=== PATIENT | female | born 1995 | race African-American/Black ===

== ENCOUNTER 2017-02-15 01:51 | Emergency (ER) | payer OTHER, SELFPAY ==
[2017-02-15 02:27] LABS: Bilirubin Negative (Negative); Blood, Urine Negative (Negative); Glucose, Urine (Dipstick) Negative (Negative); Ketone, Urine Negative (Negative); Nitrite Negative (Negative); Protein, Urine (Dipstick) Negative (Neg-Trace)
[2017-02-15 03:09] LABS: #Lymphocytes 1.7 thou/uL (1.20-3.40); #Monocytes 0.5 thou/uL (0.11-0.59); %Basophils 0.4 % (0.0-1.0); %Eosinophils 0.5 % (0.0-10.0); %Lymphocytes 32.5 % (28.0-48.0); %Monocytes 9.8 % (0.0-4.0); Hematocrit 36.4 % (36.0-47.0); Mean Platelet Volume 7.6 fL (7.4-10.4); Red Blood Cell (RBC) Count 3.77 mill/uL (4.00-5.20); White Blood Cell (WBC) Count 5.3 thou/uL (4.8-10.8)
[2017-02-15 03:32] LABS: ALT (SGPT) 9 U/L (8-55); AST (SGOT) 15 U/L (5-30); Alkaline Phosphatase 57 U/L (40-150); Anion Gap 12 mmol/L (10-20); BUN (Urea Nitrogen) 10 mg/dL (8.4-21.0); Bilirubin, Total 0.5 mg/dL (0.2-1.2); Calc. Creatinine Clearance 0 mL/min (70-130); Calcium 9.5 mg/dL (7.8-10.44); Carbon Dioxide 22 mmol/L (22-29); Chloride 106 mmol/L (98-107); Estimated GFR-MDRD Greater than 90; Globulin 3.2 g/dL (2.4-3.5); Protein, Total 7.3 g/dL (6.0-8.3)
--- NOTE | 2017-02-15 07:57 | RAD ---
CHEST 1 VIEW: Date: 02/15/17 HISTORY: Presyncope. Abdominal pain x1 week. FINDINGS: Normal cardiac silhouette. Lungs and pleural spaces are clear. No pneumothorax or osseous abnormalit ies. IMPRESSION: No acute cardiopulmonary process. POS: [facility]
--- NOTE | 2017-02-15 08:21 | ULT ---
PRELIMINARY REPORT/[facility]/EMERGENCY AFTER HOURS PROCEDURE: EXAM: US , Transvaginal CLINICAL HISTORY: The patient is a 21 years female; Pain; Other: Llq pain; Gestational age or lmp: ? Early december; . Quantitative hCG 19,681 TECHNIQUE: Real-time transabdominal and transvaginal obstetrical ultrasound of the maternal pelvis and a first trimester with image documentation. Transvaginal imaging was used for better evaluation o f the fetus and adnexa. COMPARISON: No relevant prior studies available. FINDINGS: Uterus: There is a well formed gestational sac within the central echogenic complex. A pole and yolk sac are seen within the gestational sac. [place] rump length of 5 mm correlates with an EGA of 6 weeks 2 days +/- 4 days. cardiac activity is seen with a heart rate of 86 bpm. Right adnexa: Right ovary measures 4.5 x 2.0 x 2.7 cm and contains 1.6 cm hypoechoic cyst consistent with corpus luteum. Normal blood flow identified within the ovary. Left adnexa: Left ovary measures 2.9 x 1.8 x 2.5 cm and is normal in appearance. Normal blood flow i dentified within the ovary. Free fluid: Small free fluid. IMPRESSION: 1. Single living IUP with EGA of 6 weeks 2 days. heart rate slightly decreased at 86 beats per minute, otherwise normal appearance of early gestation. 2. Small amount of free fluid noted. Thank you for allowing us to participate in the care of your patient. Dictated and Authenticated by: Júnior Julian MD 02/15/2017 5:17 AM Central Time ([place] \T\ [place]) FINAL REPORT PELVIC ULTRASOUND: Date: 02/15/17 HISTORY: patient. Evaluate for ectopic . Serum beta HCG at 19,681. Left lower quadrant pain . COMPARISON: None. TECHNIQUE: Transabdominal and endovaginal imaging of the pelvis is performed. Ovaries interrogated with [place] sc hernandez, color flow, Doppler imaging, and spectral waveform analysis. FINDINGS/IMPRESSION: This report is in agreement with the preliminary report by [facility]. There is a well-formed gestational sac within the endometrium. There does appear to be a pole and yolk sac. heart tones are diminished, varying between 74 and 86 beats/minute. Based upon crown-rump length, gestational age i s 6 weeks/2 days. Probable cyst associated with the right ovary. Both kidneys have a normal echotext ure. A small amount of free fluid is noted. Follow-up ultrasound and serial beta HCGs are recommende d. POS: [facility]
== END 2017-02-15 05:25 | disposition home or self-care (01) ==
LOC: ERS 01:51
DX: O99.89 Other specified diseases and conditions complicating pregnancy, childbirth and the puerperium (principal); R10.32 Left lower quadrant pain; Z3A.01 Less than 8 weeks gestation of pregnancy
CPT/HCPCS: 71010; 76856; 80053; 81003; 81025; 84702; 85025; 86900; 86901; 93005

== ENCOUNTER 2017-03-03 18:54 | Emergency (ER) | payer SELFPAY ==
[2017-03-03 19:33] LABS: #Eosinphils 0.1 thou/uL (0.0-0.7); #Lymphocytes 2.3 thou/uL (1.20-3.40); #Monocytes 0.5 thou/uL (0.11-0.59); #Neutrophils 2.7 thou/uL (1.40-6.50); %Basophils 0.5 % (0.0-1.0); %Eosinophils 1.1 % (0.0-10.0); %Lymphocytes 40.9 % (28.0-48.0); %Monocytes 9.3 % (0.0-4.0); Hematocrit 39.3 % (36.0-47.0); Mean Platelet Volume 7.7 fL (7.4-10.4); Red Blood Cell (RBC) Count 3.99 mill/uL (4.00-5.20); White Blood Cell (WBC) Count 5.6 thou/uL (4.8-10.8)
[2017-03-03 19:52] LABS: ALT (SGPT) 8 U/L (8-55); AST (SGOT) 16 U/L (5-30); Alkaline Phosphatase 63 U/L (40-150); Anion Gap 16 mmol/L (10-20); BUN (Urea Nitrogen) 10 mg/dL (8.4-21.0); Bilirubin, Total 0.5 mg/dL (0.2-1.2); Calc. Creatinine Clearance 0 mL/min (70-130); Calcium 9.3 mg/dL (7.8-10.44); Carbon Dioxide 20 mmol/L (22-29); Chloride 104 mmol/L (98-107); Estimated GFR-MDRD Greater than 90; Globulin 3.4 g/dL (2.4-3.5); Protein, Total 7.6 g/dL (6.0-8.3)
== END 2017-03-03 21:00 | disposition left against medical advice (07) ==
LOC: ERS 18:54
DX: Z53.21 Procedure and treatment not carried out due to patient leaving prior to being seen by health care provider (principal)
CPT/HCPCS: 36415; 80053; 85025

== ENCOUNTER 2017-08-14 03:55 | Emergency (ER) | payer OTHER, SELFPAY ==
[2017-08-14] MEDS ORDERED: Ondansetron ODT 8 MG TAB ONE (04:29)
[2017-08-14 04:40] LABS: #Lymphocytes 0.4 thou/uL (1.20-3.40); #Monocytes 0.2 thou/uL (0.11-0.59); #Neutrophils 3.4 thou/uL (1.40-6.50); %Basophils 0.3 % (0.0-1.0); %Eosinophils 0.3 % (0.0-10.0); %Lymphocytes 9.2 % (28.0-48.0); %Monocytes 5.3 % (0.0-4.0); %Neutrophils 84.9 % (31.0-61.0); Hemoglobin 13.2 g/dL (12.0-16.0); Mean Corpuscular HGB CONC 36.1 g/dL (32.0-36.0); Mean Corpuscular Hemoglobin 34.8 pg (25.0-35.0); Mean Corpuscular Volume 96.3 fl (77.0-87.0); Mean Platelet Volume 7.7 fL (7.4-10.4); Platelet Count 241 thou/uL (130-400); RBC Distribution Width 11.5 % (11.5-14.5); Red Blood Cell (RBC) Count 3.79 mill/uL (4.00-5.20)
[2017-08-14 05:04] LABS: ALT (SGPT) 17 U/L (8-55); AST (SGOT) 20 U/L (5-30); Alkaline Phosphatase 45 U/L (40-150); Anion Gap 10 mmol/L (10-20); BUN (Urea Nitrogen) 11 mg/dL (8.4-21.0); Bilirubin, Total 0.9 mg/dL (0.2-1.2); Calc. Creatinine Clearance 0 mL/min (70-130); Calcium 8.9 mg/dL (7.8-10.44); Carbon Dioxide 22 mmol/L (22-29); Chloride 104 mmol/L (98-107); Estimated GFR-MDRD Greater than 90; Globulin 2.9 g/dL (2.4-3.5); Glucose 99 mg/dL (70-105); Potassium 3.9 mmol/L (3.5-5.1); Protein, Total 6.9 g/dL (6.0-8.3); Sodium 132 mmol/L (136-145)
[2017-08-14 06:51] LABS: Bilirubin Negative (Negative); Blood, Urine Negative (Negative); Clarity CLEAR (Clear); Glucose, Urine (Dipstick) Negative (Negative); Leukocyte Negative (Negative); Nitrite Negative (Negative); Protein, Urine (Dipstick) Negative (Neg-Trace); Specific Gravity, Urine 1.015 (1.002-1.036)
--- NOTE | 2017-08-14 08:58 | ULT ---
PRELIMINARY REPORT/[facility]/EMERGENTY AFTER-HOURS PROCEDURE US First Trimester, Transabdominal US Duplex Arterial/Venous of the Pelvis, Complete CLINICAL HISTORY: with nausea, vomiting, diarrhea. TECHNIQUE: Real-time transabdominal obstetrical ultrasound of the maternal pelvis and a first trimester pregnanc y with image documentation. Real-time duplex ultrasound scan of the pelvis integrating B mode two-dim ensional vascular structure, Doppler spectral analysis and color flow Doppler imaging. FINDINGS: Gestation: There is a single, live intrauterine gestation. heart rate: 168 BPM. Yolk sac: Present. pole: 10 weeks and 3 days as estimated from crown rump length. Subchorionic hemorrhage: Absent. Estimated date of confinement: 03.09.18 Uterus: No acute disease. Ovaries: No acute disease. Right: No solid mass. Normal vascular flow. Left: No solid mass. Normal va scular flow. Impression: Single, live intrauterine gestation without visible complication. Thank you for allowing us to participate in the care of your patient. Dictated and Authenticated by: Shun Oro MD 08/14/2017 5:26 AM Central Time ([place] & [place]) FINAL REPORT PELVIC ULTRASOUND: Date: 08/14/17 HISTORY: Pelvic pain, dysuria. Patient is 9 weeks by history. FINDINGS: Real-time imaging of the pelvis shows a single, viable intrauterine . heart rate is 16 8 beats/minute. The crown-rump length measurement is 3.5 cm, corresponding to 10 weeks/3 days. Gestat ional sac measurement is 5.0 cm, corresponding to 10 weeks/5 days. Placenta is difficult to localize at this stage. I do not see any signs of any subchorionic bleed. Left ovary is well visualized, normal in size and appearance. Right ovary is less optimally visualize d, but also appears unremarkable. DOPPLER EVALUATION WITH SPECTRAL ANALYSIS: Normal flow is shown to both adnexa. IMPRESSION: Single, viable intrauterine . [place]-rump length measurements correspond to a gestational age of 10 weeks/4 days. Estimated date of delivery is 03/08/18. This report is in agreement with the preliminary report issued by [facility]. POS: [facility]
== END 2017-08-14 06:50 | disposition home or self-care (01) ==
LOC: ERS 03:55
DX: O21.0 Mild hyperemesis gravidarum (principal); Z3A.09 9 weeks gestation of pregnancy
CPT/HCPCS: 76856; 80053; 81003; 84702; 85025; 93976; 96360; 96361

== ENCOUNTER 2017-09-16 12:40 | Emergency (ER) | payer OTHER ==
[2017-09-16 13:10] LABS: #Lymphocytes 1.5 thou/uL (1.20-3.40); #Monocytes 0.5 thou/uL (0.11-0.59); #Neutrophils 3.4 thou/uL (1.40-6.50); %Basophils 0.4 % (0.0-1.0); %Eosinophils 0.4 % (0.0-10.0); %Lymphocytes 28.3 % (28.0-48.0); %Monocytes 8.3 % (0.0-4.0); %Neutrophils 62.6 % (31.0-61.0); Hemoglobin 12.7 g/dL (12.0-16.0); Mean Corpuscular HGB CONC 35.4 g/dL (32.0-36.0); Mean Corpuscular Hemoglobin 33.9 pg (25.0-35.0); Mean Corpuscular Volume 95.7 fl (77.0-87.0); Mean Platelet Volume 7.2 fL (7.4-10.4); Platelet Count 250 thou/uL (130-400); RBC Distribution Width 11.4 % (11.5-14.5); Red Blood Cell (RBC) Count 3.75 mill/uL (4.00-5.20); White Blood Cell (WBC) Count 5.4 thou/uL (4.8-10.8)
[2017-09-16 13:31] LABS: ALT (SGPT) 8 U/L (8-55); AST (SGOT) 16 U/L (5-30); Albumin 4.1 g/dL (3.5-5.0); Alkaline Phosphatase 40 U/L (40-150); Anion Gap 10 mmol/L (10-20); BUN (Urea Nitrogen) 7 mg/dL (8.4-21.0); Bilirubin, Total 0.5 mg/dL (0.2-1.2); Calc. Creatinine Clearance 0 mL/min (70-130); Calcium 9.6 mg/dL (7.8-10.44); Carbon Dioxide 23 mmol/L (22-29); Chloride 105 mmol/L (98-107); Estimated GFR-MDRD Greater than 90; Globulin 3.2 g/dL (2.4-3.5); Glucose 77 mg/dL (70-105); Potassium 3.7 mmol/L (3.5-5.1); Protein, Total 7.3 g/dL (6.0-8.3); Sodium 134 mmol/L (136-145)
[2017-09-16] MEDS ORDERED: Metoclopramide HCl 10 MG/2 ML VIAL ONE (14:40)
--- NOTE | 2017-09-16 15:51 | ULT ---
OB ULTRASOUND: History: Left lower quadrant pain. Intrauterine . FINDINGS: There is a single viable intrauterine identified. Gestational age by ultrasound is 15 weeks 0 days. Biometry measurements are consistent. There is a posterior placenta. heart rate recorded at 145-149 beats/minute. Amniotic fluid appears within normal range. Cervical length is recorded at 3.1 cm. No abnormality identified. There appears to be a left ovary identified at the area of pain, however, no ovarian cyst is seen. Color doppler with spectral analysis does show flow to this left ovary. Righ t ovary is not identified. IMPRESSION: 1. Viable intrauterine with gestational age consistent with 15 weeks 0 day gestation. No ab normality identified. POS: [facility]
[2017-09-16 15:57] LABS: Bilirubin Negative (Negative); Blood, Urine Negative (Negative); Clarity CLEAR (Clear); Glucose, Urine (Dipstick) Negative (Negative); Leukocyte Negative (Negative); Nitrite Negative (Negative); Protein, Urine (Dipstick) Negative (Neg-Trace); Specific Gravity, Urine 1.021 (1.002-1.036)
== END 2017-09-16 16:32 | disposition home or self-care (01) ==
LOC: ERS 12:40
DX: O99.89 Other specified diseases and conditions complicating pregnancy, childbirth and the puerperium (principal); R10.32 Left lower quadrant pain; Z79.899 Other long term (current) drug therapy; Z3A.13 13 weeks gestation of pregnancy
CPT/HCPCS: 36415; 76815; 80053; 81003; 84702; 85025; 96365; 96366; J2765

== ENCOUNTER 2018-02-07 20:11 | Day surgery (SDC) | payer OTHER ==
[2018-02-07 20:46] VITALS: BP 113/68; TEMP 98.8; BMI 32.2
[2018-02-07] MEDS ORDERED: Ondansetron ODT 4 MG TAB PO SCH (21:27)
--- NOTE | 2018-02-07 21:27 | PDOC.FPROB ---
FMR OB H&P: HPI - History of Present Illness Chief Complaint: Right flank pain Indentification: 22 year old at 35.3 wks History of Present Illness: 22 year old at 35.3 wks with NINA 03/11/2018 presents with right flank pain with gradual onset yesterday. Patient states she is having some discomfort with urination and some hesitancy. The pain starts in her right groin and radiates to her back. This morning she had some nausea and vomiting for 30 minutes. It resolved until she tried to eat something and then she vomited again. She was able to keep down her dinner. She denies any nausea currently. She does state that the pain feels better when leaning forward. She denies vaginal discharge, vaginal bleeding, LoF, or contractions. 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 - Surgical History Sx History: None - Social History Social History: Denies alcohol, drug, or tobacco use - Family History Family History: Insignificant FMR OB H&P: Medications - Current Home Medications: Medication Instructions Recorded Confirmed Type No Known 02/07/18 02/07/18 History Allergies/Adverse Reactions: Allergies Allergy/AdvReac Type Severity Reaction Status Date / Time amoxicillin Allergy Mild Rash Verified 02/07/18 20:42 FMR OB H&P: ROS - Review of Systems General: denies: fever/chills, fatigue Eyes: denies: vision changes ENT: denies: nasal congestion, rhinorrhea, sore throat Cardiovascular: denies: chest pain, palpitation, edema Respiratory: denies: cough, congestion, shortness of breath Gastrointestinal: denies: abdominal pain, nausea, vomiting, diarrhea, constipation Genitourinary (Female): reports: dysuria, hesitancy. denies: vaginal discharge , vaginal pain, vaginal bleeding, contractions Musculoskeletal: denies: pain Hematologic/Lymphatic: denies: prolonged or excessive bleeding Psychological: denies: depression, anxiety FMR OB H&P: Vital Signs - Maternal Vital signs: Vital Signs - First Documented Temp Pulse Resp BP 98.8 F 87 16 113/68 02/07/18 20:40 02/07/18 20:40 02/07/18 20:40 02/07/18 20:40 - Heart Tones Baseline: 130 Variability: moderate Acceleration: present Deceleration: absent Category: category 1 [place] contractions every: Irritability FMR OB H&P: Physical Exam - Physical Exam General: NAD, awake, alert and oriented HEENT: MMM, grossly normal vision, grossly normal hearing Neck: supple Heart: pulses present, no edema General: no respiratory distress Abdomen: soft, gravid, non-tender Musculoskeletal: normal gait and station, pulses present Neurological: no tremor, no focal deficit Skin: no rash, capillary refill <2 seconds Lymphatic: no unusual bruising or bleeding Psychiatric: intact recent and remote memory, good judgement and insight, normal mood and affect FMR OB H&P: A/P - Problem List (1) Intrauterine Current Visit: Yes Status: Acute Code(s): Z34.90 - ENCNTR FOR SUPRVSN OF NORMAL , UNSP, UNSP TRIMESTER Assessment and Plan: 22 year old at 35.3 wks with NINA of 03/11/2018 1. sIUP - Discussion: Date/Time: 02/07/182124 This H&P was discussed with Dr. WINTER, who agrees with the above documentation and plan. OBGYN Attending Note: Patient seen and examined at bedside. HPI: 22 year old at 35.3 wks with NINA 03/11/2018 presents with right flank pain with gradual onset yesterday. Patient states she is having some discomfort with urination and some hesitancy. The pain starts in her right groin and radiates to her back. This morning she had some nausea and vomiting for 30 minutes. She was able to keep down her dinner. She denies any nausea currently. She does state that the pain feels better when leaning forward. She denies vaginal discharge, vaginal bleeding, LoF, or contractions. On exam: No evidence of PTL or Pyelo clinically. Allergy to Amoxcillin UTI suspected on UA. I have ordered to convert the UA to a culture. To be conservative, we will order CBC and CMP. We will give Rocephin 250mg IM x 1 now so she can have antibiotic coverage before she fills her RX for macrobid as we plan for outpatient care. If serum labs abnormal, we may keep for IV antibiotics.
[2018-02-07] MEDS ORDERED: Acetaminophen 500 MG TAB PO SCH (21:28)
[2018-02-07 21:32] LABS: Bilirubin Negative (Negative); Blood, Urine Negative (Negative); Clarity CLOUDY (Clear); Glucose, Urine (Dipstick) Negative (Negative); Leukocyte Moderate (Negative); Nitrite Negative (Negative); Protein, Urine (Dipstick) Negative (Neg-Trace); Specific Gravity, Urine 1.011 (1.002-1.036)
[2018-02-07 21:34] LABS: Bacteria/HPF Rare-Few HPF (None Seen); Hyaline Casts/LPF 0-3 HYALINE CAST LPF (0-3 Hyaline); Pathc Cast-AUWi Flag 0.43 (0-2.49); RBC/HPF 0-3 HPF (0-3); Squamous Epithelial 0-3 HPF (0-3); WBC/HPF 21-50 HPF (0-3)
[2018-02-07] MEDS ORDERED: SODIUM CHLORIDE 0.9% IVPB SCH (22:29)
[2018-02-07] MEDS ORDERED: CEFTRIAXONE ROCEPHIN IVPB SCH (22:29)
[2018-02-07] MEDS ORDERED: cefTRIAXone\\ROCEPHIN 250 MG VIAL IM SCH (23:45)
--- NOTE | 2018-02-08 00:04 | PDOC.EVN ---
Event Note - Event Note Event Note: Update at 02/08/18: CMP and CBC still pending. Lab called. Still afebrile
[2018-02-08 00:12] LABS: AST (SGOT) 16 U/L (5-34); Albumin 3.5 g/dL (3.5-5.0); Alkaline Phosphatase 111 U/L (40-150); Anion Gap 10 mmol/L (10-20); BUN (Urea Nitrogen) 7 mg/dL (7.0-18.7); Bilirubin, Total 0.5 mg/dL (0.2-1.2); Calc. Creatinine Clearance 186 mL/min (70-130); Calcium 9.5 mg/dL (7.8-10.44); Carbon Dioxide 24 mmol/L (22-29); Chloride 106 mmol/L (98-107); Estimated GFR-MDRD Greater than 90; Globulin 3.4 g/dL (2.4-3.5); Glucose 82 mg/dL (70-105); Potassium 3.8 mmol/L (3.5-5.1); Protein, Total 6.9 g/dL (6.0-8.3); Sodium 136 mmol/L (136-145)
[2018-02-08 00:13] LABS: ALT (SGPT) 8 U/L (8-55)
--- NOTE | 2018-02-08 00:31 | PDOC.EVN ---
Event Note - Event Note Event Note: CMP ok CBC pending
[2018-02-08 01:14] LABS: #Eosinphils 0.1 thou/uL (0.0-0.7); #Lymphocytes 1.7 thou/uL (1.20-3.40); #Neutrophils 5.3 thou/uL (1.40-6.50); %Basophils 0.2 % (0.0-1.0); %Eosinophils 0.8 % (0.0-10.0); %Lymphocytes 21.3 % (28.0-48.0); %Monocytes 12.6 % (0.0-4.0); %Neutrophils 65.1 % (31.0-61.0); Mean Corpuscular HGB CONC 33.8 g/dL (32.0-36.0); Mean Corpuscular Volume 94.4 fL (78.0-98.0); Mean Platelet Volume 8.1 fL (7.4-10.4); Platelet Count 255 thou/uL (130-400); RBC Distribution Width 11.2 % (11.5-14.5); Red Blood Cell (RBC) Count 3.12 mill/uL (4.00-5.20); White Blood Cell (WBC) Count 8.1 thou/uL (4.8-10.8)
--- NOTE | 2018-02-08 01:21 | PDOC.EVN ---
Event Note - Event Note Event Note: CBC is normal
== END 2018-02-08 01:40 | disposition home or self-care (01) ==
LOC: L&D/OP 20:11
PROVIDERS: ATTEND Family Medicine
DX: O99.89 Other specified diseases and conditions complicating pregnancy, childbirth and the puerperium (principal); R30.0 Dysuria; R39.11 Hesitancy of micturition; R10.31 Right lower quadrant pain; Z3A.35 35 weeks gestation of pregnancy; Z88.0 Allergy status to penicillin
CPT/HCPCS: 36415; 80053; 81003; 81015; 85025; 87086; 96372; 99283; J0696; J7050; Q0162

== ENCOUNTER 2018-02-09 19:47 | Day surgery (SDC) | payer OTHER ==
[2018-02-09 20:32] VITALS: BP 113/73; TEMP 98.3
[2018-02-09 21:39] LABS: Bacteria/HPF None Seen HPF (None Seen); Bilirubin Negative (Negative); Blood, Urine Trace (Negative); Clarity CLEAR (Clear); Glucose, Urine (Dipstick) Negative (Negative); Hyaline Casts/LPF 4-6 HYALINE CAST LPF (0-3 Hyaline); Leukocyte Trace (Negative); Nitrite Negative (Negative); Pathc Cast-AUWi Flag 1.16 (0-2.49); Protein, Urine (Dipstick) Trace mg/dL (Neg-Trace); Specific Gravity, Urine 1.015 (1.002-1.036)
--- NOTE | 2018-02-09 23:08 | PRG ---
OB ED NOTE DATE OF SERVICE: 02/09/2018 TIME OF SERVICE: 2230 hours. PRESENTING COMPLAINT: Left lower abdominal pain at 35 weeks gestation. HISTORY OF PRESENT ILLNESS: Ms. Juan is a 22-year-old 2, para 1 with an EDC of 03/11/2018, placing her at 35 weeks and 5 days. She was seen over the weekend and diagnosed with possible UTI, although urine culture is negative. She was given Rocephin and antibiotics and discharged home. She has been on antibiotics for [address] Cruz in the office today and was noted to be close d, long, and high. She presents complaining of left lower quadrant pain without dysuria, flank pain, fever, rupture of membranes or vaginal bleeding. She reports an active fetus. 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 PAST MEDICAL HISTORY: None. PAST SURGICAL HISTORY: None. ALLERGIES: PENICILLIN. MEDICATIONS: vitamins. SOCIAL HISTORY: Denies tobacco, alcohol, or drug use. REVIEW OF SYSTEMS: Noncontributory. PHYSICAL EXAMINATION: GENERAL: Black female in no acute distress. VITAL SIGNS: Blood pressure 114/82, pulse 95, respirations 18, temperature 98.6. HEENT: Within normal limits. LUNGS: Clear to auscultation bilaterally. HEART: Regular rate and rhythm. BREASTS: No masses bilaterally. ABDOMEN: Soft and nontender, no rebound or guarding. FHTs 140s. GENITOURINARY: Vulva without lesions. Vaginal exam deferred. EXTREMITIES: Without clubbing, cyanosis or edema. Urinalysis was a clean catch sample and had a few leukocytes and rbc's, but nothing consistent with U TI in fact no leukocyte esterase. IMPRESSION: Discomforts of . No evidence of pyelonephritis or urinary tract infection at t his time. PLAN: Finish antibiotics, discharge home, keep scheduled followup with Dr. Cruz.
== END 2018-02-09 22:44 | disposition home or self-care (01) ==
LOC: L&D/OP 19:47
PROVIDERS: ATTEND Family Medicine
DX: O99.89 Other specified diseases and conditions complicating pregnancy, childbirth and the puerperium (principal); R10.32 Left lower quadrant pain; Z3A.35 35 weeks gestation of pregnancy; Z88.0 Allergy status to penicillin
CPT/HCPCS: 81001; 99282

== ENCOUNTER 2018-02-11 16:45 | Day surgery (SDC) | payer OTHER ==
[2018-02-11 17:32] VITALS: BMI 31.7
[2018-02-11] MEDS ORDERED: Cyclobenzaprine 10 MG TAB PO SCH (17:45)
[2018-02-11] MEDS ORDERED: Metoclopramide HCl 10 MG TAB PO PRN (18:02)
--- NOTE | 2018-02-11 18:14 | PDOC.LDHP ---
Labor and Delivery H&P Chief complaint: abdominal pain (and back pain) HPI: 22 y/o G1 at 36w0d, patient of Dr. Cruz, presents for right sided back and abdominal pain. She was here Friday and diagnosed with a UTI, then returned Friday and given comfort measures for round ligament pain. She is still taking Macrobid for UTI but symptoms are not improved. She is also complaining of N/V when she lies down. She still has an appetite. Denies VB, LOF, or decreased FM. ROS neg for HEENT, cv, pulm, gi, gu, neuro, psych, skin, musculoskeletal or constitutional symptoms other than mentioned above. OB History Details: First Current complications: none Past Medical History: None Current medications: pre- vitamins Previous surgical history: none Allergies/Adverse Reactions: Allergies Allergy/AdvReac Type Severity Reaction Status Date / Time amoxicillin Allergy Mild Rash Verified 02/09/18 20:32 Social history: none - Physical Exam Vital signs reviewed and normal: yes General: NAD, resting Lungs: nonlabored breathing Abdomen: gravid Extremeties: no edema FHT: category 1 (130s, mod variability, + accels, no decels) [place] contractions every: (irritability) 3 mins - Vaginal Exam cm dilated: 0 Effacement: 0% Station: -3 - OB Labs Additional Labs: Laboratory Results - last 24 hr 02/11/18 18:13 WBC 6.8 RBC 3.26 L Hgb 10.2 L Hct 30.6 L MCV 93.9 MCH 31.4 MCHC 33.5 RDW 11.4 L Plt Count 289 MPV 7.7 Neutrophils % 63.9 H Lymphocytes % 21.4 L Monocytes % 13.0 H Eosinophils % 1.0 Basophils % 0.7 Neutrophils # 4.3 Lymphocytes # 1.5 Monocytes # 0.9 H Eosinophils # 0.1 Basophils # 0.0 - Plan -: Will recheck in 2 hours. Renal ultrasound ordered and pending. Will hand off to Dr. Dias.
[2018-02-11 18:28] LABS: #Eosinphils 0.1 thou/uL (0.0-0.7); #Lymphocytes 1.5 thou/uL (1.20-3.40); #Monocytes 0.9 thou/uL (0.11-0.59); #Neutrophils 4.3 thou/uL (1.40-6.50); %Basophils 0.7 % (0.0-1.0); %Lymphocytes 21.4 % (28.0-48.0); %Neutrophils 63.9 % (31.0-61.0); Hemoglobin 10.2 g/dL (12.0-16.0); Mean Corpuscular HGB CONC 33.5 g/dL (32.0-36.0); Mean Corpuscular Hemoglobin 31.4 pg (25.0-35.0); Mean Corpuscular Volume 93.9 fL (78.0-98.0); Mean Platelet Volume 7.7 fL (7.4-10.4); Platelet Count 289 thou/uL (130-400); RBC Distribution Width 11.4 % (11.5-14.5); Red Blood Cell (RBC) Count 3.26 mill/uL (4.00-5.20); White Blood Cell (WBC) Count 6.8 thou/uL (4.8-10.8)
[2018-02-11] MEDS ORDERED: Morphine 10 MG/ML VIAL IM SCH (22:00)
[2018-02-11] MEDS ORDERED: Ondansetron ODT 8 MG TAB SL SCH (22:00)
[2018-02-11] MEDS ORDERED: Ondansetron ODT 8 MG TAB ONE (22:04)
--- NOTE | 2018-02-11 23:20 | PRG ---
DATE OF SERVICE: 02/11/2018 HISTORY OF PRESENT ILLNESS: Patient is a 22-year-old female who presented today with right-sided back pain and abdominal pain and was evaluated by Dr. Beard. At the time of transfer of the patient to my shift, a renal ultrasound was pending. Results have returned and have mild hydronephrosis on the right, likely physiologic from . No evidence of obstruction or other concerns. On reevaluation, patient is sleeping and has point tenderness on the right paravertebral muscles. On repeat exam, patient was noted to have point tenderness along the right paravertebral musculature. Fetus also demonstrated reactivity. Baseline in the 120s with moderate long-term variability and positive accelerations with some irritability on the monitor, but no consistent contraction. PHYSICAL EXAMINATION: VITAL SIGNS: At time of discharge, most recent blood pressure 107/76, pulse of 96, respiratory rate of 16, temperature 98.6. ASSESSMENT AND PLAN: Patient is being discharged to home. She has been given 8 mg of morphine IM and 8 mg of Zofran sublingually to prevent nausea. The patient did receive Flexeril earlier at around 5:00 with a prior provider. The patient has an appointment with Dr. Cruz next Friday, which we have encouraged that she keep labor precautions have been given. SHERLEYD
--- NOTE | 2018-02-12 13:54 | ULT ---
RENAL SONOGRAM 02/11/18 HISTORY: Persistent right flank pain in a patient with 36 week . FINDINGS: The right kidney measures 11.2 cm x 6.5 cm with the left kidney measuring 9.7 cm x 4.8 cm. There is m ild hydronephrosis present. No hydronephrosis is present on the left. There is no evidence of a renal mass, renal calculus or perinephric fluid collection seen bilaterally. There is evidence of an intrauterine gestation in cephalic presentation. The cardiac doppler does dem onstrate heart tones. The urinary bladder is partially distended and has a normal sonographic appearance. Color flow evalua tion does demonstrate evidence of ureteral jets bilaterally. IMPRESSION: Mild right hydronephrosis likely attributable to intrauterine gestation. No hydronephrosis is present on the left. POS: [facility]
== END 2018-02-11 22:50 | disposition home or self-care (01) ==
LOC: L&D/OP 16:45
PROVIDERS: ATTEND Family Medicine
DX: O99.89 Other specified diseases and conditions complicating pregnancy, childbirth and the puerperium (principal); R10.9 Unspecified abdominal pain; M54.9 Dorsalgia, unspecified; N13.6 Pyonephrosis; O23.43 Unspecified infection of urinary tract in pregnancy, third trimester; Z3A.36 36 weeks gestation of pregnancy; Z79.2 Long term (current) use of antibiotics; Z79.899 Other long term (current) drug therapy; Z88.0 Allergy status to penicillin
CPT/HCPCS: 36415; 76770; 85025; 96372; 99284; J2270

== ENCOUNTER 2018-02-13 14:30 | Observation (INO) | payer OTHER ==
[2018-02-13 14:52] VITALS: BMI 31.1
[2018-02-13] MEDS ORDERED: Dextrose 5%-Lactated Ringers 1,000 ML IV SCH (15:30)
[2018-02-13 15:54] LABS: #Eosinphils 0.1 thou/uL (0.0-0.7); #Lymphocytes 1.5 thou/uL (1.20-3.40); #Monocytes 0.9 thou/uL (0.11-0.59); #Neutrophils 5.8 thou/uL (1.40-6.50); %Basophils 0.3 % (0.0-1.0); %Eosinophils 0.6 % (0.0-10.0); %Lymphocytes 18.1 % (28.0-48.0); %Monocytes 10.4 % (0.0-4.0); %Neutrophils 70.5 % (31.0-61.0); Hemoglobin 10.8 g/dL (12.0-16.0); Mean Corpuscular HGB CONC 33.7 g/dL (32.0-36.0); Mean Platelet Volume 8.2 fL (7.4-10.4); Platelet Count 296 thou/uL (130-400); RBC Distribution Width 11.4 % (11.5-14.5); Red Blood Cell (RBC) Count 3.38 mill/uL (4.00-5.20); White Blood Cell (WBC) Count 8.2 thou/uL (4.8-10.8)
[2018-02-13 15:55] LABS: Bilirubin Negative (Negative); Blood, Urine Negative (Negative); Clarity CLEAR (Clear); Glucose, Urine (Dipstick) Negative (Negative); Leukocyte Trace (Negative); Nitrite Negative (Negative); Protein, Urine (Dipstick) Negative (Neg-Trace); Specific Gravity, Urine 1.014 (1.002-1.036); pH, Urine 7.5 (5.0-9.0)
[2018-02-13 15:57] LABS: Bacteria/HPF None Seen HPF (None Seen); Hyaline Casts/LPF 7-10 HYALINE CAST LPF (0-3 Hyaline); Pathc Cast-AUWi Flag 2.47 (0-2.49); RBC/HPF None Seen HPF (0-3); WBC/HPF 0-3 HPF (0-3)
[2018-02-13 16:13] LABS: Yeast-All Forms None Seen HPF (None Seen)
[2018-02-13 16:14] LABS: ALT (SGPT) 10 U/L (8-55); AST (SGOT) 18 U/L (5-34); Albumin 3.5 g/dL (3.5-5.0); Alkaline Phosphatase 120 U/L (40-150); Anion Gap 13 mmol/L (10-20); BUN (Urea Nitrogen) 7 mg/dL (7.0-18.7); Bilirubin, Total 0.7 mg/dL (0.2-1.2); Calc. Creatinine Clearance 159 mL/min (70-130); Calcium 9.1 mg/dL (7.8-10.44); Carbon Dioxide 22 mmol/L (22-29); Chloride 104 mmol/L (98-107); Estimated GFR-MDRD Greater than 90; Globulin 3.5 g/dL (2.4-3.5); Glucose 71 mg/dL (70-105); Sodium 135 mmol/L (136-145)
--- NOTE | 2018-02-13 17:28 | PDOC.LDHP ---
Labor and Delivery H&P Chief complaint: other HPI: 21 yo BF presents c/o N/V and right sided abdominal pain. Has been seen here x 3, Dx. with UTI, RLP and muscles spasms at those respective visits. Current gestational age (weeks): 36 Due date: 03/11/18 Dating criteria: last menstrual period Grav: 1 Para: 0 OB History Details: PNC with Dr. Cruz as above. Current complications: none Abnormal US findings: No Past Medical History: none Current medications: pre-yelena vitamins, other (unknown ABX for UTI) Previous surgical history: none Allergies/Adverse Reactions: Allergies Allergy/AdvReac Type Severity Reaction Status Date / Time amoxicillin Allergy Mild Rash Verified 02/09/18 20:32 Social history: none - Physical Exam Vital signs reviewed and normal: yes General: NAD Heart: RRR Lungs: CTAB Abdomen: NTTP FHT: variability present [place] contractions every: No UCs seen - OB Labs Blood type: unknown RH: unknown Antibody Screen: unknown GBS: unknown - Assessment 36 week IUP Right flank pain with recent normal USG of kidneys Persistant N/V. - Plan Plan: observation in L&D (recheck labs, IV hydration, upper abdominal USG. Dr. Cruz notified and agrees with plan.)
[2018-02-13] MEDS ORDERED: Senokot S 8.6-50 MG TAB PO PRN (17:58)
[2018-02-13] MEDS ORDERED: Ondansetron ODT 4 MG TAB PO PRN (17:58)
[2018-02-13] MEDS ORDERED: Calcium Carbonate 500 MG ChewTAB PO PRN (17:58)
[2018-02-13] MEDS ORDERED: Ondansetron PF 4 MG/2 ML Vial IVP PRN (17:58)
[2018-02-13] MEDS ORDERED: Acetaminophen 650 MG Suppository PR PRN (17:58)
[2018-02-13] MEDS ORDERED: Famotidine 20 MG TAB PO PRN (17:58)
[2018-02-13] MEDS ORDERED: Lactated Ringer's 1,000 ML IV SCH (18:00)
[2018-02-13] MEDS: Acetaminophen 325 MG TAB PO PRN ×2 (18:21→22:15)
--- NOTE | 2018-02-13 20:05 | ULT ---
ABDOMEN ULTRASOUND: HISTORY: [id number] intrauterine . Persistent nausea and vomiting. COMPARISON: None. TECHNIQUE: Real-time, rowe-scale, and color evaluation of the right upper quadrant of the abdomen was performed. FINDINGS: The visualized portions of the aorta, IVC, and pancreas are unremarkable. The liver is unremarkable, as well as the gallbladder. Right-sided hydronephrosis, moderate, is similar. The left kidney is without hydronephrosis. The spleen is unremarkable. The portal vein has patent antegrade flow, and the common bile duct is normal. IMPRESSION: Similar appearance of moderate right-sided hydronephrosis. POS: [facility]
[2018-02-13] MEDS: Dextrose 5%-Lactated Ringers 1,000 ML IV SCH ×2 (21:46→22:15)
[2018-02-14] MEDS: Dextrose 5%-Lactated Ringers 1,000 ML IV SCH (06:39)
[2018-02-14] MEDS: Acetaminophen 325 MG TAB PO PRN (06:43)
[2018-02-14 12:04] VITALS: BP 102/66; TEMP 98.6
== END 2018-02-14 15:15 | disposition home or self-care (01) ==
LOC: L&D/OP 14:30 → L&D 18:52 → INTOOBSV 18:52 → 3SW 21:18
PROVIDERS: ADMIT Family Medicine; ATTEND Family Medicine
DX: O99.89 Other specified diseases and conditions complicating pregnancy, childbirth and the puerperium (principal); R10.9 Unspecified abdominal pain; R11.2 Nausea with vomiting, unspecified; Z3A.36 36 weeks gestation of pregnancy; Z88.0 Allergy status to penicillin
CPT/HCPCS: 51701; 59025; 76700; 80053; 81003; 82150; 85025; 96360; 96361; 99285; A4353; G0378; Q0162

== ENCOUNTER 2018-03-09 15:47 | Inpatient (IN) | payer OTHER ==
[2018-03-09 16:07] VITALS: BMI 33.9
[2018-03-09] MEDS ORDERED: Carboprost 250 MCG/ML AMP IM PRN (17:17)
[2018-03-09] MEDS ORDERED: Calcium Gluc 4.6 MEQ/10 ML (100 MG/ML) SLOW IVP PRN (17:17)
[2018-03-09] MEDS ORDERED: Diphenoxylate HCl/Atropine Tablet PO PRN (17:17)
[2018-03-09] MEDS ORDERED: Lidocaine 1% (PF) 30 ML VIAL SC PRN (17:17)
[2018-03-09] MEDS ORDERED: Ondansetron PF 4 MG/2 ML Vial IVP PRN (17:17)
[2018-03-09] MEDS ORDERED: Methylergonovine 0.2 MG/ML VIAL IM PRN (17:17)
[2018-03-09] MEDS ORDERED: Ibuprofen 800 MG TAB PO PRN (17:17)
[2018-03-09] MEDS ORDERED: Misoprostol 200 MCG TAB PR PRN (17:17)
[2018-03-09] MEDS ORDERED: HYDROcodone/Acetaminophen 5/325 mg Tablet PO PRN (17:17)
[2018-03-09] MEDS ORDERED: NS w/ Oxytocin 10 units 500 ML IV SCH ×2 (17:30)
--- NOTE | 2018-03-09 19:43 | ULT ---
BIOPHYSICAL PROFILE: Indication: Question induced hypertension. FINDINGS: tone 2 breathing 2 movement 2 Amniotic fluid 2 Total 8/8 heart rate: 149 ITA: 6.1 cm Placenta: To the right Position: Vertex IMPRESSION: Amniotic fluid volume of low normal. POS: [facility]
[2018-03-09 19:48] LABS: Hemoglobin 10.3 g/dL (12.0-16.0); Mean Corpuscular HGB CONC 34.3 g/dL (32.0-36.0); Mean Corpuscular Hemoglobin 31.6 pg (25.0-35.0); Mean Corpuscular Volume 92.2 fL (78.0-98.0); Mean Platelet Volume 8.5 fL (7.4-10.4); Platelet Count 257 thou/uL (130-400); RBC Distribution Width 11.8 % (11.5-14.5); Red Blood Cell (RBC) Count 3.26 mill/uL (4.00-5.20); White Blood Cell (WBC) Count 5.6 thou/uL (4.8-10.8)
[2018-03-09] MEDS: Misoprostol 100 MCG TAB PO SCH ×2 (20:25→23:10)
[2018-03-09 20:29] LABS: Hep B Surf Ag Non-Reactive S/CO (NonReactive); Syphilis Antibody Nonreactive (Nonreactive); Syphilis Antibody Index 0.06 S/CO (<1.00 Non-Reactive)
[2018-03-09] MEDS: Butorphanol Tartrate 1 MG/ML VIAL SLOW IVP PRN (23:12)
[2018-03-10 00:37] LABS: HIV (1/2) Antibody/Antigen Non-Reactive (NonReactive); HIV 1/2 INDEX 0.22 S/CO (<1.00); Hep B Surf Ag Non-Reactive S/CO (NonReactive)
[2018-03-10 00:54] LABS: Creatinine, Urine 23.89 mg/dL (47-110)
[2018-03-10] MEDS: Butorphanol Tartrate 1 MG/ML VIAL SLOW IVP PRN (01:02)
[2018-03-10] MEDS ORDERED: Fentanyl 4 mcg/Bup 0.1% Cadd 100 ML ONE (02:04)
[2018-03-10] MEDS: Misoprostol 100 MCG TAB PO SCH (02:10)
[2018-03-10] MEDS: Lactated Ringer's 1,000 ML IV SCH ×2 (02:10→22:30)
[2018-03-10] MEDS ORDERED: Acetaminophen 325 MG TAB PO PRN (02:28)
[2018-03-10] MEDS ORDERED: Lactated Ringer's 500 ML IV PRN (02:28)
[2018-03-10] MEDS ORDERED: diphenhydrAMINE 50 MG/ML VIAL IVP PRN (02:28)
[2018-03-10] MEDS ORDERED: Promethazine HCl 25 MG/ML VIAL IM PRN (02:28)
[2018-03-10] MEDS ORDERED: ePHEDrine/0.9% NaCl/PF SYRINGE 50 mg/10 ml SLOW IVP PRN (02:28)
[2018-03-10] MEDS ORDERED: Naloxone HCl 0.4 mg/ml Vial IVP PRN ×2 (02:28)
[2018-03-10] MEDS ORDERED: Eucerin (Mineral Oil/Petrolatum,White) 30 gm Jar TOP PRN (02:28)
[2018-03-10] MEDS ORDERED: Ondansetron PF 4 MG/2 ML Vial IVP PRN ×2 (02:28→07:35)
[2018-03-10] MEDS ORDERED: Communication Order-Pharmacy FS SCH (02:30)
[2018-03-10] MEDS ORDERED: Fentanyl 4 mcg/Bupivacaine 0.1% Cassette 100 ML EPIDURAL SCH (02:30)
[2018-03-10] MEDS ORDERED: Lidocaine 1% (PF) 30 ML VIAL ONE (04:17)
[2018-03-10] MEDS ORDERED: NS / Oxytocin 40 units/1000ml 1,000 ML ONE (04:17)
[2018-03-10] MEDS: NS / Oxytocin 40 units/1000ml 1,000 ML IV PRN ×2 (05:40→06:58)
[2018-03-10 06:01] LABS: Actual Bicarbonate (HCO3a) 24.7 mEq/L (22-28); Base Excess (BEa) -2.5 mEq/L (-2.0 to +3.0)
[2018-03-10] MEDS ORDERED: Adacel (T-DAP) 0.5 ML VIAL IM ONE (07:35)
[2018-03-10] MEDS ORDERED: Bisacodyl 10 MG SUPP PR PRN (07:35)
[2018-03-10] MEDS ORDERED: Lanolin Ointment 7 GM TUBE TOP PRN (07:35)
[2018-03-10] MEDS ORDERED: NS / Oxytocin 40 units/1000ml 1,000 ML IV SCH (07:35)
[2018-03-10] MEDS ORDERED: Milk Of Magnesia 30 ML UDCUP PO PRN (07:35)
[2018-03-10] MEDS ORDERED: diphenhydrAMINE 25 MG CAP PO PRN (07:35)
[2018-03-10] MEDS ORDERED: Benzocaine/Menthol 20-0.5% 60 ML CAN TOP PRN (07:35)
[2018-03-10] MEDS ORDERED: HYDROcodone/Acetaminophen 5/325 mg Tablet PO PRN ×2 (07:35)
[2018-03-10] MEDS: Ferrous Sulfate 325 MG TAB PO SCH ×2 (08:48→16:08)
[2018-03-10] MEDS: Docusate Calcium (SURFAK) 240 MG CAP PO SCH ×2 (09:43→21:07)
[2018-03-10] MEDS: Prenatal Vitamin 1 TAB PO SCH (09:43)
[2018-03-10] MEDS ORDERED: Ibuprofen 800 MG TAB PO SCH (14:00)
[2018-03-10] MEDS ORDERED: Bupivacaine/Epinephrine 0.25% 30 ML VIAL ONE (18:00)
[2018-03-10] MEDS: Ibuprofen 800 MG TAB PO SCH (18:27)
[2018-03-10] MEDS: cloNIDine 0.1 MG TAB PO PRN (21:07)
[2018-03-11] MEDS: Ibuprofen 800 MG TAB PO SCH ×3 (02:52→19:11)
[2018-03-11] MEDS: cloNIDine 0.1 MG TAB PO PRN ×2 (05:57→20:38)
[2018-03-11 06:18] LABS: Hemoglobin 8.9 g/dL (12.0-16.0); Mean Corpuscular HGB CONC 32.5 g/dL (32.0-36.0); Mean Corpuscular Hemoglobin 30.6 pg (25.0-35.0); Mean Corpuscular Volume 94.2 fL (78.0-98.0); Mean Platelet Volume 8.6 fL (7.4-10.4); Platelet Count 242 thou/uL (130-400); RBC Distribution Width 11.9 % (11.5-14.5); Red Blood Cell (RBC) Count 2.91 mill/uL (4.00-5.20); White Blood Cell (WBC) Count 7.9 thou/uL (4.8-10.8)
[2018-03-11] MEDS: Prenatal Vitamin 1 TAB PO SCH (09:25)
[2018-03-11] MEDS: Ferrous Sulfate 325 MG TAB PO SCH ×2 (09:25→17:27)
[2018-03-11] MEDS: Docusate Calcium (SURFAK) 240 MG CAP PO SCH ×2 (09:25→20:39)
[2018-03-11 20:55] VITALS: TEMP 97.7
[2018-03-12] MEDS: cloNIDine 0.1 MG TAB PO PRN ×2 (00:18→05:43)
[2018-03-12] MEDS: Ibuprofen 800 MG TAB PO SCH (03:07)
[2018-03-12 09:21] VITALS: BP 119/78
[2018-03-12] MEDS: Prenatal Vitamin 1 TAB PO SCH (10:21)
[2018-03-12] MEDS: Ferrous Sulfate 325 MG TAB PO SCH (10:21)
[2018-03-12] MEDS: Docusate Calcium (SURFAK) 240 MG CAP PO SCH (10:22)
== END 2018-03-12 11:40 | disposition home or self-care (01) | DRG 807 ==
LOC: L&D/OP 15:47 → L&D 20:40 → 3SW 03-10 08:10
PROVIDERS: ADMIT Family Medicine; ATTEND Family Medicine
PROC: 3E0P7VZ Introduction of Hormone into Female Reproductive, Via Natural or Artificial Opening (ICD-10-PCS; 2018-03-09)
PROC: 10D07Z6 Extraction of Products of Conception, Vacuum, Via Natural or Artificial Opening (ICD-10-PCS; principal; 2018-03-10)
PROC: 0KQM0ZZ Repair Perineum Muscle, Open Approach (ICD-10-PCS; 2018-03-10)
PROC: 0W8NXZZ Division of Female Perineum, External Approach (ICD-10-PCS; 2018-03-10)
PROC: 4A0HXCZ Measurement of Products of Conception, Cardiac Rate, External Approach (ICD-10-PCS; 2018-03-10)
DX: O14.94 Unspecified pre-eclampsia, complicating childbirth (principal); Z37.0 Single live birth; O76 Abnormality in fetal heart rate and rhythm complicating labor and delivery; Z3A.39 39 weeks gestation of pregnancy; O70.1 Second degree perineal laceration during delivery
CPT/HCPCS: 36415; 51702; 76819; 81003; 82570; 82805; 84156; 85027; 86780; 86850; 86900; 86901; 87340; 87389; 99285; J0595; J2001; J2405; J2550

== ENCOUNTER 2018-03-20 22:10 | Emergency (ER) | payer OTHER ==
[2018-03-20 22:48] LABS: #Eosinphils 0.1 thou/uL (0.0-0.7); #Lymphocytes 1.5 thou/uL (1.20-3.40); #Monocytes 0.4 thou/uL (0.11-0.59); #Neutrophils 2.3 thou/uL (1.40-6.50); %Basophils 0.1 % (0.0-1.0); %Eosinophils 2.9 % (0.0-10.0); %Lymphocytes 35.3 % (28.0-48.0); %Monocytes 8.3 % (0.0-4.0); %Neutrophils 53.5 % (31.0-61.0); Mean Corpuscular HGB CONC 33.9 g/dL (32.0-36.0); Mean Corpuscular Hemoglobin 31.3 pg (25.0-35.0); Mean Corpuscular Volume 92.5 fL (78.0-98.0); Platelet Count 537 thou/uL (130-400); RBC Distribution Width 11.9 % (11.5-14.5); Red Blood Cell (RBC) Count 3.85 mill/uL (4.00-5.20); White Blood Cell (WBC) Count 4.3 thou/uL (4.8-10.8)
== END 2018-03-20 23:11 | disposition home or self-care (01) ==
LOC: ERS 22:10
DX: O90.1 Disruption of perineal obstetric wound (principal); Z79.1 Long term (current) use of non-steroidal anti-inflammatories (NSAID); Z79.899 Other long term (current) drug therapy; Z79.891 Long term (current) use of opiate analgesic
CPT/HCPCS: 36415; 85025; 86850; 86900; 86901; 94760

== ENCOUNTER 2021-02-19 21:31 | Emergency (ER) | payer SELFPAY ==
[2021-02-19] MEDS ORDERED: Ondansetron PF 4 MG/2 ML Vial ONE (22:35)
[2021-02-19] MEDS ORDERED: Morphine 4 MG/ML VIAL ONE (22:35)
== END 2021-02-20 00:49 | disposition home or self-care (01) ==
LOC: ERS 21:31
DX: S06.0X1A Concussion with loss of consciousness of 30 minutes or less, initial encounter (principal); H11.33 Conjunctival hemorrhage, bilateral; S00.03XA Contusion of scalp, initial encounter; S00.83XA Contusion of other part of head, initial encounter; Y04.8XXA Assault by other bodily force, initial encounter
CPT/HCPCS: 70450; 70486; 96374; 96375; J2270; J2405

== ENCOUNTER 2024-12-03 09:21 | Outpatient (CLI) | payer BC | END 2024-12-03 09:22 | disposition home or self-care (01) | LOC: ULT 09:21 | PROVIDERS: ATTEND Nurse Practitioner Family | DX: R10.31 Right lower quadrant pain (principal) | CPT/HCPCS: 76700 ==

== ENCOUNTER 2025-01-24 08:33 | Outpatient (CLI) | payer BC ==
[2025-01-24] MEDS ORDERED: Iopamidol 370 76% 100 ML VIAL ONE (10:19)
== END 2025-01-24 08:34 | disposition home or self-care (01) ==
LOC: CT 08:33
PROVIDERS: ATTEND Internal Medicine
DX: K86.9 Disease of pancreas, unspecified (principal); R10.31 Right lower quadrant pain; K59.00 Constipation, unspecified
CPT/HCPCS: 74177; Q9967